=== PATIENT | female | born 1980 | race Caucasian/White ===

== ENCOUNTER → 2019-04-07 | Outpatient (REF) | payer BC | LOC: M LAB LCGH 14:08 | PROVIDERS: ATTEND Nurse Practitioner Adult Health | DX: N95.1 Menopausal and female climacteric states (principal) | CPT/HCPCS: 87624; G0123 ==

== ENCOUNTER → 2022-09-27 | Outpatient (REF) | payer BC | LOC: M PLALAB 09:58 | PROVIDERS: ATTEND Advanced Practice Midwife | DX: Z12.4 Encounter for screening for malignant neoplasm of cervix (principal) ==